=== PATIENT | male | born 1980 | race Caucasian/White ===

== ENCOUNTER 2019-08-04 10:17 | Emergency (ER) | payer OTHER ==
[~2019-08-04] VITALS: Ht 188 cm; Wt 104.5 kg
[~2019-08-04 10:17] MED LIST: NORCO 325 MG-51 TAB PO; NORVASC 10MG10 MG PO; PRILOSEC 20MG20 MG PO; ULTRAM 50MG TAB50 MG PO; ZOFRAN 4MG T4 MG/TAB PO
[2019-08-04 11:57] LABS: COLLECTION METHOD CLEAN CATCH
[2019-08-04 12:19] LABS: MUCOUS Present /lpf; PH 5 (5-8); SQUAMOUS EPITHELIAL 0-2 /hpf; URINE APPEARANCE Cloudy; URINE BACTERIA None Seen /hpf; URINE BILIRUBIN Positive (NEGATIVE); URINE BLOOD Negative (NEGATIVE); URINE COLOR Amber; URINE GLUCOSE Negative (NEGATIVE); URINE KETONE Trace (NEGATIVE); URINE LEUKOCYTE ESTERASE Negative (NEGATIVE); URINE NITRATE Negative (NEGATIVE); URINE PROTEIN(semi-quant) 2+ (NEGATIVE)
[2019-08-04 12:56] VITALS: TEMP 99
[2019-08-04] MEDS ORDERED: TAMIFLU 75MG75 MG PO (13:57)
[2019-08-04] MEDS ORDERED: CEFTIN500 MG PO (13:57)
[2019-08-04] MEDS ORDERED: NORCO 325 MG-51 TAB PO (13:58)
[2019-08-04 14:11] VITALS: BP 142/78; PULSE 104
== END 2019-08-04 14:11 | disposition home or self-care (01) ==
LOC: COL.ER 10:17
PROVIDERS: Emergency Medicine
DX: J11.1 Influenza due to unidentified influenza virus with other respiratory manifestations (principal); N39.0 Urinary tract infection, site not specified; G62.9 Polyneuropathy, unspecified

== ENCOUNTER 2024-02-05 08:19 | Day surgery (SDC) | payer OTHER ==
[~2024-02-05] VITALS: Ht 218.4 cm; Wt 106.8 kg
[2024-02-05] VITALS (8 sets, daily range): BP systolic 96–140; BP diastolic 55–114; PULSE 77–97; TEMP 96.4–96.9
[~2024-02-05 08:19] MED LIST changes: +CEFTIN500 MG PO; +DESYREL 50MG50 MG; +HCTZ 25MG TAB25 MG; +LR 1,000 ML IV SCH; +MINIPRESS 1M1 MG/CAP; +MOBIC15 MG; +Ondansetron 4 MG/2 ML VIAL IV PRN; +PRIL40; +PRINIVIL40 MG; +SINGULAIR 110 MG/TAB; +TAMIFLU 75MG75 MG PO; +TENORMIN 2525 MG/TAB; +WELLBUTRIN SR150 M1; +ZOCOR 20MG20 MG; +ZOLOFT 50MG50 MG
[2024-02-05] MEDS ORDERED: COZAAR 25MG25 MG/TAB PO (09:36)
[2024-02-05] MEDS ORDERED: SINGULAIR 110 MG/TAB PO (09:37)
[2024-02-05] MEDS ORDERED: ZYRTEC5 MG PO (09:37)
[2024-02-05] MEDS ORDERED: VENTOLIN0.09 MG IH (09:38)
[2024-02-05] MEDS ORDERED: EFFE25TA PO (09:38)
--- NOTE | 2024-02-05 09:39 | NUR ---
Home medication reconcilliation attempted with patient, but pt was not clear on what medications he takes regularly or doses of medication.
[2024-02-05] MEDS ORDERED: Lidocaine PF 2% (20 MG/ML) 5 ML VIAL ONE (09:40)
[2024-02-05] MEDS ORDERED: hydrALAZINE 20 MG/ML 1 ML VIAL ONE (09:40)
--- NOTE | 2024-02-05 10:24 | NUR ---
Jesús is transferred to holding area after EGD and colonoscopy with dr. Berumen. Pt states feels "fine", and denies any pain or nausea. Pt set up with post procedure monitoring. Jesús aware of plan for monitoring then discharge after MD has reviewed test results and poc.
--- NOTE | 2024-02-05 10:33 | NUR ---
Pt continues to feel "fine"; he is ambulatory to the bathroom at this time. He has called his and updated her that he is back from procedure and on projected discharge time of approx 30-45 minutes.
--- NOTE | 2024-02-05 10:46 | NUR ---
Jesús provided with water and muffin. no trouble swallowing; continues to deny pain or nausea r/t to procedure. Pt does talk about persistent cough he has and wondering if this could be related to his esophageal stricture. I advised that he talk with Dr. Berumen about that. Pt verbalized understanding.
--- NOTE | 2024-02-05 11:18 | NUR ---
Jesús has developed nausea with vomiting, He appears pale and bp dropped. He remains awake and alert. Yessi administered PRN as ordered. Dr. Berumen came to talk to Jesús just as Zofran was being administered/ He reviewed test results and poc with Jesús, who verbalized understanding. WCTM.
--- NOTE | 2024-02-05 11:23 | NUR ---
Nausea improving, will continue to monitor.
--- NOTE | 2024-02-05 11:32 | NUR ---
Nausea better, pt has been able to eat muffin and drink water with no problem. Pt is ready for discharge. IV dc'd.
--- NOTE | 2024-02-05 11:42 | NUR ---
Jesús feeling better, getting dressed, ready for departure.
== END 2024-02-05 13:00 | disposition home or self-care (01) ==
LOC: SDCO 08:19
DX: Z12.11 Encounter for screening for malignant neoplasm of colon (principal); D12.3 Benign neoplasm of transverse colon; K21.00 Gastro-esophageal reflux disease with esophagitis, without bleeding; K22.2 Esophageal obstruction; K44.9 Diaphragmatic hernia without obstruction or gangrene; Z86.010 Personal history of colon polyps
CPT/HCPCS: C1726; J0360; J2405; J2704; J7120

== ENCOUNTER → 2024-05-10 | Outpatient (CLI) | payer OTHER ==
[~2024-05-10] MED LIST changes: +Albuterol 0.083% Neb Soln 2.5 MG/3 ML UD IH ONE; +COZAAR 25MG25 MG/TAB PO; +EFFE25TA PO; -LR 1,000 ML IV SCH; +Methacholine Vial A (Clear Label Base-Cntrl) IH ONE; +Methacholine Vial B (Red Label) 0.0625 MG/ML 3 ML VIAL.NEB IH ONE; -Ondansetron 4 MG/2 ML VIAL IV PRN; +SINGULAIR 110 MG/TAB PO; +VENTOLIN0.09 MG IH; +ZYRTEC5 MG PO
== END ==
LOC: COL.CARD 12:58
DX: R05.3 Chronic cough (principal)
CPT/HCPCS: J7674